=== PATIENT | male | born 1960 | race Two or more races ===

== ENCOUNTER 2024-07-29 12:44 | Inpatient (IN) | payer BC ==
[~2024-07-29] VITALS: Ht 177.8 cm; Wt 74.5 kg
--- NOTE | 2024-07-29 13:41 | DVH ---
Procedure: XY CHEST TWO VIEWS ROUTINE 07/29/2024 01:20 PM Indication: sob. Comparison: None TECHNIQUE: XY CHEST TWO VIEWS ROUTINE FINDINGS: Medical devices: None. Cardiomediastinal: The heart is normal in size. Pulmonary vasculature is within normal limits. Lungs: No focal pulmonary opacity is seen. The costophrenic angles are clear. No pneumothorax. Bones/soft tissues: Mild chronic appearing anterior compression deformity of the midthoracic vertebra l noted. Multilevel degenerative disc disease is seen. IMPRESSION: 1. No acute cardiopulmonary disease.
[2024-07-29 14:03] LABS: Basophils # (auto) 0.2 10 ^3/uL (0-0.2); Eosinophils # (auto) 0.1 10 ^3/uL (0-0.8); Eosinophils % (auto) 1.7 % (0.0-7.0); Hematocrit 42.6 % (41.0-53.0); Hemoglobin 14.4 g/dL (13.5-17.5); Lymphocytes % (auto) 23.6 % (10.0-50.0); Mean Corpuscular Hemoglobin 29.8 pg (28.0-32.0); Mean Corpuscular Hgb Conc. 33.9 g/dL (32.0-36.0); Monocytes # (auto) 0.5 10 ^3/uL (0-1.3); Monocytes % (auto) 5.6 % (0.0-12.0); Neutrophils # (auto) 5.7 10 ^3/uL (1.6-8.6); Neutrophils % (auto) 67.1 % (37.0-80.0); Platelet Count (auto) 270 10^3/uL (140-450); Red Blood Cells 4.84 10^6/uL (4.5-5.90); White Blood Cell 8.5 10^3/uL (4.4-10.8)
[2024-07-29 14:22] LABS: Chloride 107 mmol/L (98-107); Potassium 4.3 mmol/L (3.5-5.1); Sodium 140 mmol/L (136-145)
[2024-07-29 14:23] LABS: Anion Gap 4 (5-15); Carbon Dioxide 29 mmol/L (20-31)
[2024-07-29 14:24] LABS: Calcium 9.8 mg/dL (8.7-10.4)
[2024-07-29 14:29] LABS: BUN/Creatinine Ratio 16.1 (10.0-20.0); Blood Urea Nitrogen 15 mg/dL (9-23); Glucose 105 mg/dL (74-106)
--- NOTE | 2024-07-29 14:29 | ED.PDOC ---
History of Present Illness HPI Comments 63Y M presents to ED for chief complaint SOB and chest pain x3wks. Pt describes chest pain as "weight" and "sharp", radiates to throat, and is at a level of pain 4/10. Additional symptoms include fatigue and nausea. SOB gets worse with exertion. 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 Pt drinks alcohol occasionally but denies intoxication. Pt denies tobacco and illicit drug use. Pt does not have PCP. Pt's father recently earlier this year due to [place]. No known allergies. Chief Complaint: Shortness of Breath Time Seen by MD: 13:48 Reviewed Notes: Medications, Allergies Information Source: Patient Mode of Arrival: Ambulatory Severity: Moderate Timing: Weeks Duration: Intermittent Past Medical History PAST MEDICAL HISTORY: Denies Surgical History: Denies all surgeries Family History Family History: Family hx of heart chica Social History Smoker: Non-Smoker Alcohol: Occasionally Drugs: Denies Drug Use Lives In: Home Constitutional: reports: fatigue; denies: chills, diaphoresis, fever, malaise, sweats, weakness, others EENTM: denies: blurred vision, double vision, ear bleeding, ear discharge, ear drainage, ear pain, ear ringing, eye pain, eye redness, hearing loss, mouth pain, mouth swelling, nasal discharge, nose bleeding, nose congestion, nose pain, photophobia, tearing, throat pain, throat swelling, voice changes, others Respiratory: reports: SOB at rest, shortness of breath, SOB with excertion; denies: cough, hemoptysis, orthopnea, stridor, wheezing, others Cardiovascular: reports: chest pain; denies: dizzy spells, diaphoresis, Dyspnea on exertion, edema, irregular heart beat, left arm pain, lightheadedness, palpitations, PND, syncope, others Gastrointestinal: reports: nausea; denies: abdomen distended, abdominal pain, blood streaked bowels, constipated, diarrhea, dysphagia, difficulty swallowing, hematemesis, melena, poor appetite, poor fluid intake, rectal bleeding, rectal pain, vomiting, others Genitourinary: denies: burning, dysuria, flank pain, frequency, hematuria, incontinence, penile discharge, penile sore, pain, testicle pain, testicle swelling, urgency, others Neurological: denies: dizziness, fainting, headache, left sided numbness, left sided weakness, numbness, paresthesia, pre-existing deficit, right sided n umbness, right sided weakness, seizure, speech problems, tingling, tremors, weakness, others Musculoskeletal: denies: back pain, gout, joint pain, joint swelling, muscle pain, muscle stiffness, neck pain, others Integumetry: denies: bruises, change in color, change in hair/nails, dryness, laceration, lesions, lumps, rash, wounds, others Allergic/Immunocompromised: denies: Difficulty Healing, Frequent Infections, Hives, Itching, others Hematologic/Lymphatic: denies: anemia, blood clots, easy bleeding, easy bruising, swollen glands, others Endocrine: denies: excessive hunger, excessive sweating, excessive thirst, excessive urination, flushing, intolerance to cold, intolerance to heat, unexplained weight gain, unexplained weight loss, others Psychiatric: denies: anxiety, bipolar disorder, depression, hopeless, panic disorder, schizophrenia, sleepless, suicidal, others All Other Systems: Reviewed and Negative Physical Exam General Appearance: Mild Distress, Normal HEENT: Normal ENT Inspection, Pharynx Normal, TMs Normal Neck: Full Range of Motion, Non-Tender, Normal, Normal Inspection Respiratory: Chest Non-Tender, Lungs Clear, No Accessory Muscle Use, No Respiratory Distress, Normal Breath Sounds Cardiovascular: No Edema, No JVD, No Murmur, No Gallop, Normal Peripheral Pulses, Regular Rate/Rhythm Breast Exam: Deferred Gastrointestinal: No Organomegaly, Non Tender, No Pulsatile Mass, Normal Bowel Sounds, Soft Genitalia: Deferred Pelvic: Deferred Rectal: Deferred Extremities: No calf tenderness, Normal capillary refill, Normal inspection, Normal range of motion, Non-tender, No pedal edema Musculoskeletal : Apperance: Normal Neurologic: Alert, minesweeping officer II-XII nml as Tested, No Motor Deficits, Normal Affect, Normal Mood, No Sensory Deficits Cerebellar Function: Normal Reflexes: Normal Skin: Dry, Normal Color, Warm Lymphatic: No Adenopathy Was a procedure done? Was a procedure done?: No EKG EKG : Pulse Rate (adult): 81 Cardiac Rhythm: NSR Comments Normal sinus rhythm rate of 81, supraventricular bigeminy. Inverted T-waves in 3 AVF. Differential Dx Considerations may include: ACS, MS pain, gastritis X-Ray, Labs, Meds, VS Vital Signs Date Time Temp Pulse Resp B/P (MAP) Pulse Ox O2 Delivery O2 Flow Rate FiO2 07/29/24 16:48 98.0 68 18 118/64 (82) 98 98.0 07/29/24 16:48 68 18 98 Room Air 07/29/24 16:45 118/64 07/29/24 15:47 125/77 07/29/24 13:01 81 07/29/24 13:00 97.9 82 14 144/73 (96) 96 Lab Test 07/29/24 13:34 Range/Units White Blood Count 8.5 4.4-10.8 10^3/uL Red Blood Count 4.84 4.5-5.90 10^6/uL Hemoglobin 14.4 13.5-17.5 g/dL Hematocrit 42.6 41.0-53.0 % Mean Corpuscular Volume 88.0 80.0-100.0 fL Mean Corpuscular Hemoglobin 29.8 28.0-32.0 pg Mean Corpuscular Hemoglobin Concent 33.9 32.0-36.0 g/dL Red Cell Distribution Width 13.0 11.8-14.3 % Platelet Count 270 140-450 10^3/uL Mean Platelet Volume 8.7 6.9-10.8 fL Neutrophils (%) (Auto) 67.1 37.0-80.0 % Lymphocytes (%) (Auto) 23.6 10.0-50.0 % Monocytes (%) (Auto) 5.6 0.0-12.0 % Eosinophils (%) (Auto) 1.7 0.0-7.0 % Basophils (%) (Auto) 2.0 0.0-2.0 % Neutrophils # (Auto) 5.7 1.6-8.6 10 ^3/uL Lymphocytes # (Auto) 2.0 0.4-5.4 10 ^3/uL Monocytes # (Auto) 0.5 0-1.3 10 ^3/uL Eosinophils # (Auto) 0.1 0-0.8 10 ^3/uL Basophils # (Auto) 0.2 0-0.2 10 ^3/uL Nucleated Red Blood Cells 0.0 % Sodium Level 140 136-145 mmol/L Potassium Level 4.3 3.5-5.1 mmol/L Chloride Level 107 98-107 mmol/L Carbon Dioxide Level 29 20-31 mmol/L Anion Gap 4 L 5-15 Blood Urea Nitrogen 15 9-23 mg/dL Creatinine 0.93 0.700-1.30 mg/dL Glomerular Filtration Rate Calc 92 >90 mL/min BUN/Creatinine Ratio 16.1 10.0-20.0 Serum Glucose 105 74-106 mg/dL Calcium Level 9.8 8.7-10.4 mg/dL Troponin I High Sensitivity 7 </=54 ng/L B-Type Natriuretic Peptide 30.46 0-100 pg/mL Current Medications Medications (Trade) Dose Ordered Sig/Marcelino Route Start Time Stop Time Status Last Admin Nitroglycerin (Ntrostat Sublingual) 0.4 mg ONCE ONCE SL 07/29/24 14:30 07/29/24 14:31 DC 07/29/24 15:47 Aspirin 162 mg ONCE ONCE PO 07/29/24 14:30 07/29/24 14:31 DC 07/29/24 15:47 [place] [id number] Ph: [phone] DIAGNOSTIC IMAGING Diagnostic Imaging Report : [id number] Signed PATIENT: SANJUANA CASTAÑEDA ACCT: [id number] UNIT: [id number] : 1960 LOC: ER ROOM / BED: / AGE / SEX: 63 / M ADM STATUS: REG ER SERVICE [id number] ORDERING PHYSICIAN: CALEB DUNBAR MD PROCEDURE(s): CXR2 - CHEST TWO VIEWS ROUTINE REASON: sob ORDER NUMBER(s): [id number], ACCESSION NUMBER(s): [id number] Procedure: XY CHEST TWO VIEWS ROUTINE 07/29/2024 01:20 PM Indication: sob. Comparison: None TECHNIQUE: XY CHEST TWO VIEWS ROUTINE FINDINGS: Medical devices: None. Cardiomediastinal: The heart is normal in size. Pulmonary vasculature is within normal limits. Lungs: No focal pulmonary opacity is seen. The costophrenic angles are clear. No pneumothorax. Bones/soft tissues: Mild chronic appearing anterior compression deformity of the midthoracic vertebral noted. Multilevel degenerative disc disease is seen. IMPRESSION: 1. No acute cardiopulmonary disease. ATED BY: LATISHA CORCORAN MD DICTATED DATE/TIME: 07/29/241337 SIGNED BY: LATISHA CORCORAN MD SIGNED DATE/TIME: 07/29/241337 CC: 63-year-old male presents here with chest discomfort. He states the pain feels like a weight on his chest when he exerts himself and better with rest. At this time I am concerned about possible he had coronary syndrome. Chest x-ray is unremarkable. Troponin is negative. EKG with supraventricular bigeminy and inverted T-waves in 3 and AVF.. Based on his history chest pain with exertion I am concerned about acute coronary syndrome. This time I have given him nitroglycerin and aspirin in the ER. Hospitalist team has been contacted for admission. Time of 1ST Reevaluation: 14:18 Reevaluation 1ST: Unchanged Patient Education/Counseling: Diagnosis, Treatment Family Education/Counseling: No Family Present Departure 1 Departure Time of Disposition: 15:00 Impression: Primary Impression: Chest pain Qualified Codes: R07.9 - Chest pain, unspecified Disposition: ADMITTED INPATIENT Condition: Serious Critical Care Note Critical Care Time?: No Stability Stability form required: No Heart Score Heart Score: Heart Score Response (Comments) Value History Highly Suspicious 2 EKG Repolarization Disturb 1 Age 45-64 1 Risk Factors 1 or 2 risk factors 1 Troponin Normal limit 0 Total 5 I personally scribed for CALEB DUNBAR MD ([email or web address]) on 07/29/24 at 14:29. Electronically submitted by Layla Lee ([email or web address]). I personally scribed for CALEB DUNBAR MD ([email or web address]) on 07/29/24 at 14:47. Electronically submitted by Layla Lee ([email or web address]). CALEB DUNBAR MD Jul 29, 2024 14:29
[2024-07-29] MEDS: NITROGLYCERIN 0.4 MG SL TAB SL ONE (15:47)
[2024-07-29] MEDS: ASPirin 81 mg TAB PO ONE (15:47)
[2024-07-29 16:50] VITALS: O2SAT 96
--- NOTE | 2024-07-29 16:58 | ECG ---
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
[2024-07-29] MEDS ORDERED: MORPHINE SULFATE INJ 2 MG/ml SYRG IV PRN (18:45)
[2024-07-29] MEDS ORDERED: MORPHINE SULFATE 4 MG/ML SYR/VIAL IV PRN (18:45)
[2024-07-29] MEDS ORDERED: ACETAMINOPHEN 325 MG TAB PO PRN (18:45)
[2024-07-29] MEDS ORDERED: ONDANSETRON HCL 4 MG/2 ML VIAL IV PRN (18:45)
[2024-07-29] MEDS ORDERED: NITROGLYCERIN 0.4 MG SL TAB SL PRN ×2 (18:45)
--- NOTE | 2024-07-29 19:02 | DVHHP2 ---
History of Present Illness Reason for Visit: shortness of breath and chest pain History of Present Illness 63 yo male with stated no past medial history and patient states that he has had chest pain and intermittent palpations and shortness of breath that occurred at various times patient came to the ed with severe chest pain Cardiovascular: AFIB Review of Systems Constitutional: No: Fever, Chills, Sweats, Weakness, Malaise, Other Eyes: No: Pain, Vision change, Conjunctivae inflammation, Eyelid inflammation, Other, Redness ENT: No: Ear pain, Ear discharge, Nose pain, Nose discharge, Nose congestion, Mouth pain, Mouth swelling, Throat pain, Throat swelling, Other Respiratory: Shortness of breath, SOB with excertion; No: Cough, Dry, Wheezing, Hemoptysis, Pleuritic Pain, Sputum, Wheezing, Other Cardiovascular: Chest Pain, Palpitations; No: Orthopnea, Paroxysmal Noc. Dyspnea, Edema, Lt Headedness, Other Gastrointestinal: No: Nausea, Vomiting, Abdominal Pain, Diarrhea, Constipation, Melena, Hematochezia, Other Genitourinary: No Dysuria, No Frequency, No Incontinence, No Hematuria, No Retention, No Other Musculoskeletal: No: other, neck pain, shoulder pain, arm pain, back pain, hand pain, leg pain, foot pain Skin: No: Rash, Lesions, Jaundice, Bruising, Other Neurological: No: Weakness, Numbness, Incoordination, Change in speech, Confusion, Seizures, Other Medications Current Medications Medications Dose Ordered Sig/Marcelino Route Start Time Stop Time Status Last Admin Dose Admin Aspirin 81 mg DAILY PO 07/30/24 10:00 UNV Clopidogrel Bisulfate 75 mg DAILY PO 07/30/24 10:00 UNV Atorvastatin Calcium 40 mg HS PO 07/29/24 22:00 UNV Metoprolol Tartrate 12.5 mg Q12HR PO 07/29/24 22:00 UNV Lisinopril 5 mg DAILY PO 07/30/24 10:00 UNV Morphine Sulfate 2 mg Q30MP PRN IV 07/29/24 18:45 UNV Acetaminophen 650 mg Q6HP PRN PO 07/29/24 18:45 UNV Docusate Sodium 100 mg DAILY PO 07/30/24 10:00 UNV Nitroglycerin 0.4 mg Q5MINP PRN SL 07/29/24 18:45 UNV Ondansetron HCl 4 mg Q4HP PRN IV 07/29/24 18:45 UNV Nitroglycerin 0.4 mg Q5MINP PRN SL 07/29/24 18:45 UNV Morphine Sulfate 2 mg Q30M PRN IV 07/29/24 18:45 UNV Exam Vital Signs Vital Signs Date Time Temp Pulse Resp B/P (MAP) Pulse Ox O2 Delivery O2 Flow Rate FiO2 07/29/24 17:03 81 07/29/24 16:50 96 Room Air* 0 21 07/29/24 16:48 98.0 18 118/64 (82) 98.0 General Appearance: Alert, Oriented X3 HEENT: Atraumatic, PERRLA Respiratory: Clear to auscultation, Normal air movement Cardiovascular: Regular rate Abdominal: Normal bowel sounds, Soft Extremities: No clubbing, No cyanosis Skin: No rashes, No breakdown Neuro: Normal gait, Normal speech Psych/Mental Status: Mood NL Labs/Xrays Labs Test 07/29/24 13:34 Range/Units White Blood Count 8.5 4.4-10.8 10^3/uL Red Blood Count 4.84 4.5-5.90 10^6/uL Hemoglobin 14.4 13.5-17.5 g/dL Hematocrit 42.6 41.0-53.0 % Mean Corpuscular Volume 88.0 80.0-100.0 fL Mean Corpuscular Hemoglobin 29.8 28.0-32.0 pg Mean Corpuscular Hemoglobin Concent 33.9 32.0-36.0 g/dL Red Cell Distribution Width 13.0 11.8-14.3 % Platelet Count 270 140-450 10^3/uL Mean Platelet Volume 8.7 6.9-10.8 fL Neutrophils (%) (Auto) 67.1 37.0-80.0 % Lymphocytes (%) (Auto) 23.6 10.0-50.0 % Monocytes (%) (Auto) 5.6 0.0-12.0 % Eosinophils (%) (Auto) 1.7 0.0-7.0 % Basophils (%) (Auto) 2.0 0.0-2.0 % Neutrophils # (Auto) 5.7 1.6-8.6 10 ^3/uL Lymphocytes # (Auto) 2.0 0.4-5.4 10 ^3/uL Monocytes # (Auto) 0.5 0-1.3 10 ^3/uL Eosinophils # (Auto) 0.1 0-0.8 10 ^3/uL Basophils # (Auto) 0.2 0-0.2 10 ^3/uL Nucleated Red Blood Cells 0.0 % Sodium Level 140 136-145 mmol/L Potassium Level 4.3 3.5-5.1 mmol/L Chloride Level 107 98-107 mmol/L Carbon Dioxide Level 29 20-31 mmol/L Anion Gap 4 L 5-15 Blood Urea Nitrogen 15 9-23 mg/dL Creatinine 0.93 0.700-1.30 mg/dL Glomerular Filtration Rate Calc 92 >90 mL/min BUN/Creatinine Ratio 16.1 10.0-20.0 Serum Glucose 105 74-106 mg/dL Calcium Level 9.8 8.7-10.4 mg/dL Troponin I High Sensitivity 7 </=54 ng/L B-Type Natriuretic Peptide 30.46 0-100 pg/mL Assessment/Plan Assessment/Plan Admit to Tele Chest Pain Palpations shortness of breath with no stated cardiac history currently no acute distress trops x 3 protocol for chest pain management possible cardiac evaluation Plan discussed with: Patient My Orders Orders - PROSPER HANEY MD Procedure Category Date Status Time Admit ADMIT 07/29/24 Transmitted 18:34 Code Status CODE 07/29/24 Transmitted 18:34 Vital Signs [facility] 07/29/24 In Process 18:34 Revenue Audit Clerk CELE 07/29/24 In Process 18:34 Cardiac DIET 07/30/24 Transmitted Diet-2gna,Lofat,Lochol Breakfast Aspirin Tablet PHA 07/30/24 Logged 10:00 Clopidogrel Bisulfate PHA 07/30/24 Logged (Plavix) 10:00 Atorvastatin (Lipitor) PHA 07/29/24 Logged 22:00 Metoprolol Tartrate PHA 07/29/24 Logged Tablet (Lopressor Ta 22:00 Lisinopril Tablet PHA 07/30/24 Logged (Zestril Tablet) 10:00 Morphine Sulfate PHA 07/29/24 Logged Injection 18:45 Acetaminophen Tablet PHA 07/29/24 Logged (Tylenol Tablet) 18:45 Docusate Sodium PHA 07/30/24 Logged Capsule (Colace 10:00 Complete Blood Count LAB 07/30/24 Verified 04:00 Basic Metabolic Panel LAB 07/30/24 Verified 04:00 Nitroglycerin PHA 07/29/24 Logged Sublingual (Ntrostat 18:45 Ondansetron Hcl PHA 07/29/24 Logged (Zofran) 18:45 Electrocardigram EKG 07/29/24 Logged 18:34 Troponin-I Hs LAB 07/29/24 Logged 18:34 Comprehensive LAB 07/31/24 Verified Metabolic Panel 04:00 Nitroglycerin PHA 07/29/24 Logged Sublingual (Ntrostat 18:45 Morphine Sulfate PHA 07/29/24 Logged Injection 18:45 Stat Ekg For Chest [facility] 07/29/24 In Process Pain 18:34 Notify Md Of Changes [facility] 07/29/24 In Process From Base 18:34 Ward Service Supervisor For [facility] 07/29/24 In Process 24 Hours 18:34 Emergency Dysrhythmia [facility] 07/29/24 In Process Protocol 18:34 Rhythm Strips Once [facility] 07/29/24 In Process Every Shift 18:34 Oxygen By Nasal RT 07/29/24 Transmitted Cannula 18:34 Date of Service: Jul 29, 2024 Billing Provider: PROSPER HANEY MD Common Visit Codes: [id number] INP/OBS CARE (MOD) PROSPER HANEY MD Jul 29, 2024 19:02
[2024-07-29 22:35] VITALS: BP 132/77; PULSE 94; RESP 18; TEMP 97.6; O2SAT 98
[2024-07-29 23:46] VITALS: BP 132/77; PULSE 94; RESP 18; TEMP 97.6; O2SAT 98
[2024-07-29] MEDS: ATORVASTATIN 20 MG TAB PO SCH (23:57)
[2024-07-30] VITALS (8 sets, daily range): BP systolic 104–143; BP diastolic 53–76; PULSE 52–65; RESP 14–20; TEMP 97.5–97.7; O2SAT 94–98
[2024-07-30] MEDS: METOPROLOL TARTRATE 25 MG TAB PO SCH (00:04)
[2024-07-30 06:05] LABS: Basophils # (auto) 0 10 ^3/uL (0-0.2); Basophils % (auto) 0.8 % (0.0-2.0); Eosinophils # (auto) 0.1 10 ^3/uL (0-0.8); Eosinophils % (auto) 2.5 % (0.0-7.0); Hematocrit 41.8 % (41.0-53.0); Hemoglobin 13.7 g/dL (13.5-17.5); Lymphocytes # (auto) 1.9 10 ^3/uL (0.4-5.4); Lymphocytes % (auto) 32.2 % (10.0-50.0); Mean Corpuscular Hgb Conc. 32.9 g/dL (32.0-36.0); Mean Corpuscular Volume 88.1 fL (80.0-100.0); Monocytes # (auto) 0.5 10 ^3/uL (0-1.3); Monocytes % (auto) 8.5 % (0.0-12.0); Neutrophils # (auto) 3.3 10 ^3/uL (1.6-8.6); Nucleated Red Blood Cells % 0.1 %; Platelet Count (auto) 245 10^3/uL (140-450); Red Blood Cells 4.74 10^6/uL (4.5-5.90); White Blood Cell 5.8 10^3/uL (4.4-10.8)
[2024-07-30 06:23] LABS: Anion Gap 4 (5-15); Carbon Dioxide 28 mmol/L (20-31); Chloride 109 mmol/L (98-107); Potassium 4.2 mmol/L (3.5-5.1); Sodium 141 mmol/L (136-145)
[2024-07-30 06:24] LABS: Calcium 9.4 mg/dL (8.7-10.4)
[2024-07-30 06:29] LABS: BUN/Creatinine Ratio 14.3 (10.0-20.0); Blood Urea Nitrogen 11 mg/dL (9-23); Glucose 106 mg/dL (74-106)
[2024-07-30] MEDS: ASPirin 81 mg TAB PO SCH (10:05)
[2024-07-30] MEDS: CLOPIDOGREL BISULFATE 75 MG TAB PO SCH (10:05)
[2024-07-30] MEDS: DOCUSATE SOD 100 MG CAP PO SCH (10:05)
[2024-07-30] MEDS: LISINOPRIL 5 MG TAB PO SCH (10:07)
--- NOTE | 2024-07-30 13:20 | DVHPN2 ---
Reviewed: Care Plan, H&P, Labs, Medications, Previous Orders, Radiology Changes from previous H/P or p: No Changes Eyes: No Pain, No Vision change, No Conjunctivae inflammation, No Eyelid inflammation, No Other, No Redness ENT: No Ear pain, No Ear discharge, No Nose pain, No Nose discharge, No Nose congestion, No Mouth pain, No Mouth swelling, No Throat pain, No Throat swelling, No Other Cardiovascular: Chest Pain, Palpitations; No Orthopnea, No Paroxysmal Noc. Dyspnea, No Edema, No Lt Headedness, No Other Respiratory: No Cough, No Dry; Shortness of breath, SOB with excertion; No Wheezing, No Hemoptysis, No Pleuritic Pain, No Sputum, No Other Gastrointestinal: No Nausea, No Vomiting, No Abdominal Pain, No Diarrhea, No Constipation, No Melena, No Hematochezia, No Other Genitourinary: No Dysuria, No Frequency, No Incontinence, No Hematuria, No Retention, No Other Musculoskeletal: No other, No neck pain, No shoulder pain, No arm pain, No back pain, No hand pain, No leg pain, No foot pain Skin: No Rash, No Lesions, No Jaundice, No Bruising, No Other Objective Vitals Vital Signs Date Time Temp Pulse Resp B/P (MAP) Pulse Ox O2 Delivery O2 Flow Rate FiO2 07/30/24 12:59 97.5 55 14 126/63 (84) 96 97.5 07/30/24 08:15 Room Air* 0 21 Intake/Output Intake and Output 07/30/24 07:00 Intake Total 800 ml Balance 800 ml Intake Oral 800 ml # Voids 2 Medications Current Medications Medications Dose Ordered Sig/Marcelino Route Start Time Stop Time Status Last Admin Dose Admin Aspirin 81 mg DAILY PO 07/30/24 10:00 07/30/24 10:05 81 MG Clopidogrel Bisulfate 75 mg DAILY PO 07/30/24 10:00 07/30/24 10:05 75 MG Atorvastatin Calcium 40 mg HS PO 07/29/24 23:30 07/29/24 23:57 40 MG Metoprolol Tartrate 12.5 mg Q12HR PO 07/29/24 23:30 07/30/24 00:04 12.5 MG Lisinopril 5 mg DAILY PO 07/30/24 10:00 07/30/24 10:07 5 MG Morphine Sulfate 2 mg Q30MP PRN IV 07/29/24 18:45 Acetaminophen 650 mg Q6HP PRN PO 07/29/24 18:45 Docusate Sodium 100 mg DAILY PO 07/30/24 10:00 07/30/24 10:05 100 MG Nitroglycerin 0.4 mg Q5MINP PRN SL 07/29/24 18:45 Ondansetron HCl 4 mg Q4HP PRN IV 07/29/24 18:45 Nitroglycerin 0.4 mg Q5MINP PRN SL 07/29/24 18:45 Morphine Sulfate 2 mg Q30M PRN IV 07/29/24 18:45 Laboratory Results Laboratory Tests 07/30/24 05:36 Chemistry Test 07/29/24 13:34 07/30/24 05:36 Calcium Level 9.8 mg/dL (8.7-10.4) 9.4 mg/dL (8.7-10.4) Cardiac Markers Test 07/29/24 13:34 B-Type Natriuretic Peptide 30.46 pg/mL (0-100) Labs and/or images reviewed: Labs reviewed by me, Image(s) reviewed by me Assessment/Plan Assessment/Plan Chest Pain and shortness of breaths and palpitations x3 weeks, troponin negative x3 , aspirin Plavix Lipitor lisinopril metoprolol, cardiology consult Will check D-dimer flu test Danay test TSH lipid panel urine drug screen Echocardiogram CT chest without contrast ordered Chronic Current alcohol abuse counseled Denies Smoking or illicit drug use Plan discussed with: Patient My Orders Orders - BERT ALAN MD Procedure Category Date Status Time D-Dimer LAB 07/30/24 Logged 13:11 Covid19 Antigen Cheli LAB 07/30/24 Logged Rapid Influenza A&B LAB 07/30/24 Logged 13:11 Thyroid Stimulating LAB 07/30/24 Verified Hormone 13:13 Lipid Panel LAB 07/30/24 Verified 13:[address] 07/30/24 Verified 13:13 Drug Screen LAB 07/30/24 Verified 13:13 Date of Service: Jul 30, 2024 Billing Provider: BERT ALAN MD Common Visit Codes: [id number] INP/OBS CARE(HIGH) BERT ALAN MD Jul 30, 2024 13:20
[2024-07-30 15:33] LABS: LDL Cholesterol 158 mg/dL (< 100); Triglycerides 227 mg/dL (< 150)
[2024-07-30 15:35] LABS: Cholesterol 228 mg/dL (< 200); HDL Cholesterol 50 mg/dL (40-59)
--- NOTE | 2024-07-30 15:41 | DVH ---
EXAM: CT CHEST WITHOUT CONTRAST HISTORY: chest pain COMPARISON: None TECHNIQUE: Axial images were obtained and reformatted in coronal and sagittal planes. All CT scans at this medical facility are performed using dose modulation techniques as appropriate to a performed exam including the following: Automated exposure control was utilized; adjustment of the MA and/or K V according to patient size; and use of iterative reconstruction technique. CT Dose: CTDI volume is 8.47 mGy. Dose-length product is 288.42 mGy*cm FINDINGS: Lower neck: Unremarkable. Cardiomediastinal: The heart is normal in size. Coronary artery calcification noted. Lungs: Unremarkable. Bones and Soft Tissues: No acute abnormality. Multilevel degenerative changes of the thoracic spine are noted. Upper Abdomen: No acute abnormality. Hepatic steatosis noted. Other: None. IMPRESSION: 1. No acute abnormality is identified. Coronary artery calcification.
[2024-07-30] MEDS ORDERED: hydrALAZINE HCL 20 MG/ML VL IV PRN (15:45)
[2024-07-30 15:49] LABS: COVID19 ANTIGEN SOFIA FIA NEGATIVE (NEGATIVE); Rapid Influenza A Negative (Negative); Rapid Influenza B Negative (Negative)
--- NOTE | 2024-07-30 16:07 | DVHINCON2 ---
Date Seen: Jul 30, 2024 Referring Physician MD Ru Reason for Consultation Chest pain History of Present Illness This is a pleasant 63-year-old man who presented to the emergency room with a chief complaint of chest pain for two weeks. Describes his chest pain as progressive, substernal, radiating to his anterior neck area, pressure-like, exacerbated by activity, and associated with dyspnea on exertion. 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 He underwent a 12 lead electrocardiogram revealing a sinus rhythm ST segment depression to inferior leads and multiple premature atrial contractions. Serial troponin levels are negative. Family history includes father from a massive myocardial infarction in his 80s y.o. Only reports a medical history of dyslipidemia and occasional alcohol use. Of note, the patient has not seen a PCP with in the past in years. Past Medical History Past medical history reviewed. No other significant than mentioned above. Past Surgical History Past surgical history reviewed. No other significant than mentioned above. Family History: Alcoholism Cardiovascular disease G8 MOTHER Diabetes mellitus G8 BROTHER FH: liver cancer G8 FATHER Family History Family history reviewed. Social History Denies the use of illicit drugs or tobacco use. Admits to occasional alcohol use. Allergies: Coded Allergies: NO KNOWN ALLERGIES (Unverified , 07/29/24) Home Meds Denies any home medications. Current Medications Current Medications Medications (Trade) Dose Ordered Sig/Marcelino Route PRN Reason Start Time Stop Time Status Last Admin Aspirin 81 mg DAILY PO 07/30/24 10:00 07/30/24 10:05 Clopidogrel Bisulfate (Plavix) 75 mg DAILY PO 07/30/24 10:00 07/30/24 10:05 Atorvastatin Calcium (Lipitor) 40 mg HS PO 07/29/24 23:30 07/29/24 23:57 Metoprolol Tartrate (Lopressor Tablet) 12.5 mg Q12HR PO 07/29/24 23:30 07/30/24 00:04 Lisinopril (Zestril Tablet) 5 mg DAILY PO 07/30/24 10:00 07/30/24 10:07 Morphine Sulfate 2 mg Q30MP PRN IV FOR CHEST PAIN 07/29/24 18:45 Acetaminophen (Tylenol Tablet) 650 mg Q6HP PRN PO MILD PAIN (1-3 PAIN SCALE) 07/29/24 18:45 Docusate Sodium (Colace Capsule) 100 mg DAILY PO 07/30/24 10:00 07/30/24 10:05 Nitroglycerin (Ntrostat Sublingual) 0.4 mg Q5MINP PRN SL FOR CHEST PAIN 07/29/24 18:45 Ondansetron HCl (Zofran) 4 mg Q4HP PRN IV NAUSEA / VOMITING 07/29/24 18:45 Nitroglycerin (Ntrostat Sublingual) 0.4 mg Q5MINP PRN SL FOR CHEST PAIN 07/29/24 18:45 Morphine Sulfate 2 mg Q30M PRN IV FOR CHEST PAIN 07/29/24 18:45 Review of Systems Constitutional: No symptom reported Ears, Nose, & Throat: No symptom reported Eyes: No symptom reported Neurological: No symptoms reported Pulmonary/Respiratory: SOB Cardiovascular: Chest pain Gastrointestinal: No symptom reported Genitourinary: No symptom reported Musculoskeletal: No symptom reported Skin: No symptom reported Psychiatric: No symptom reported Endocrine: No symptom reported Hemotologic/Lymphatic: No symptom reported Vital Signs Vital Signs Date Time Temp Pulse Resp B/P (MAP) Pulse Ox O2 Delivery O2 Flow Rate FiO2 07/30/24 12:59 97.5 55 14 126/63 (84) 96 97.5 07/30/24 08:15 Room Air* 0 21 Physical Exam General Appearance: Cooperative. Well developed. Well nourished. In no acute distress Head Exam: Normal inspection Neck Exam: Normal inspection. Non-tender. Normal alignment Pulmonary/Respiratory: Chest non-tender. Clear bilateral breath sounds Cardiovascular/Chest: Regular rate and rhythm. S1, S2. Sinus rhythm with inferior ST segment depression and frequent PACs. No murmurs. No JVD. Peripheral Pulses: 2+ Radial (R). 2+ Radial (L). 2+ Pedal (R). 2+ Pedal (L) Abdominal Exam: Normal bowel sounds. Soft. Nontender. No hepatospenomegaly. No masses Ankle Exam: Negative ankle edema Lower extremities: Negative lower extremity edema Neuro/Mental Status: A&O x4. Coherent Thoughts/Psych: Normal thought pattern. Appropriate mood and affect. Good judgement and insight Appearance: In no acute distress Skin Exam: Normal inspection. Normal color. Warm. Dry Labs/Diagnostic Data Labs Test 07/30/24 15:09 07/30/24 14:38 07/30/24 05:36 07/29/24 19:20 Range/Units D-Dimer, Quantitative 0.22 0.0-0.49 mg/L FEU White Blood Count 5.8 # 4.4-10.8 10^3/uL Red Blood Count 4.74 4.5-5.90 10^6/uL Hemoglobin 13.7 13.5-17.5 g/dL Hematocrit 41.8 41.0-53.0 % Mean Corpuscular Volume 88.1 80.0-100.0 fL Mean Corpuscular Hemoglobin 29.0 28.0-32.0 pg Mean Corpuscular Hemoglobin Concent 32.9 32.0-36.0 g/dL Red Cell Distribution Width 13.0 11.8-14.3 % Platelet Count 245 140-450 10^3/uL Mean Platelet Volume 8.6 6.9-10.8 fL Neutrophils (%) (Auto) 56.0 37.0-80.0 % Lymphocytes (%) (Auto) 32.2 10.0-50.0 % Monocytes (%) (Auto) 8.5 0.0-12.0 % Eosinophils (%) (Auto) 2.5 0.0-7.0 % Basophils (%) (Auto) 0.8 0.0-2.0 % Neutrophils # (Auto) 3.3 1.6-8.6 10 ^3/uL Lymphocytes # (Auto) 1.9 0.4-5.4 10 ^3/uL Monocytes # (Auto) 0.5 0-1.3 10 ^3/uL Eosinophils # (Auto) 0.1 0-0.8 10 ^3/uL Basophils # (Auto) 0 0-0.2 10 ^3/uL Nucleated Red Blood Cells 0.1 % Sodium Level 141 136-145 mmol/L Potassium Level 4.2 3.5-5.1 mmol/L Chloride Level 109 H 98-107 mmol/L Carbon Dioxide Level 28 20-31 mmol/L Anion Gap 4 L 5-15 Blood Urea Nitrogen 11 9-23 mg/dL Creatinine 0.77 0.700-1.30 mg/dL Glomerular Filtration Rate Calc 101 >90 mL/min BUN/Creatinine Ratio 14.3 10.0-20.0 Serum Glucose 106 74-106 mg/dL Calcium Level 9.4 8.7-10.4 mg/dL Troponin I High Sensitivity 8 </=54 ng/L Test 07/29/24 13:34 Range/Units B-Type Natriuretic Peptide 30.46 0-100 pg/mL Assessment Stable angina rule out coronary artery disease Rule out structural heart disease Dyslipidemia Plan/Recommendation (Dr. Negrete) The patient presents with stable angina, EKG changes including inferior ST changes, family history for cardiovascular disease, and risk factors for which he will be scheduled for a cardiac catheterization and coronary angiogram on 07/31/2024. All risks and benefits of the procedure were discussed with the patient who agrees to proceed with intervention. All questions answered. The patient is also scheduled for a transthoracic echocardiogram to assess cardiac function. Continue single-antiplatelet therapy, lipid lowering agent, and beta- yared given frequent PACs which is the culprit of bradycardia. HgbA1c, TSH, Mg, and blood alcohol levels pending at this time. Monitor ECG changes and n otify. Continue chest pain protocol. Thank you for allowing us to participate in this patient's care. Please call if you have any questions or concerns. This medical document was created using an electronic medical record system with voice recognition software and computerized dictation system. Although this document has been carefully reviewed, there might still be some phonetic and typographical errors. Occasional wrong-word or ``sound-alike substitutions may have occurred due to the inherent limitations of voice recognition software. These areas are purely typographical due to imperfections of the software pr ograms and do not reflect any compromise in the patient's medical care. Please read the chart carefully and recognize, using context, where these substitutions have occurred. Plan discussed with: Patient, Other Date of Service: Jul 30, 2024 Billing Provider: KAVITA NEGRETE MD Cardiology Common Codes: [id number] INP/OBS CARE (High) [facility] Jul 30, 2024 16:07
[2024-07-31] VITALS (12 sets, daily range): BP systolic 97–126; BP diastolic 60–73; PULSE 53–70; RESP 14–19; TEMP 97.6–98.3; O2SAT 94–100
[2024-07-31 04:31] LABS: Urine Bacteria None Seen /hpf (None Seen)
[2024-07-31 04:46] LABS: Urine Blood Negative /uL (Negative); Urine Clarity Clear (Clear); Urine Color Light-Yellow (Yellow); Urine Protein, UAD Negative (Negative); Urine Specific Gravity 1.018 (1.001-1.035); Urine Urobilinogen Normal (Negative); Urine WBC <1 /hpf (0 - 3); Urine pH 5.5 (5.0-9.0)
[2024-07-31 04:57] LABS: Amphetamine Screen, Urine Neg (NEGATIVE); Barbiturate Scree,Urine Neg (NEGATIVE); Benzodiazephine Screen, Urine Neg (NEGATIVE); Cocaine Screen, Urine Neg (NEGATIVE); Opiate Scree,Urine Neg (NEGATIVE); Phencyclidine Screen, Urine Neg (NEGATIVE)
[2024-07-31 04:58] LABS: Cannabinoid Screen, Urine Neg (NEGATIVE)
[2024-07-31 05:43] LABS: Basophils # (auto) 0.1 10 ^3/uL (0-0.2); Basophils % (auto) 0.8 % (0.0-2.0); Eosinophils # (auto) 0.1 10 ^3/uL (0-0.8); Eosinophils % (auto) 1.7 % (0.0-7.0); Hematocrit 42.6 % (41.0-53.0); Hemoglobin 14.2 g/dL (13.5-17.5); Lymphocytes # (auto) 2.2 10 ^3/uL (0.4-5.4); Lymphocytes % (auto) 32.4 % (10.0-50.0); Mean Corpuscular Hemoglobin 29.6 pg (28.0-32.0); Mean Corpuscular Hgb Conc. 33.4 g/dL (32.0-36.0); Mean Corpuscular Volume 88.7 fL (80.0-100.0); Monocytes # (auto) 0.6 10 ^3/uL (0-1.3); Monocytes % (auto) 8.6 % (0.0-12.0); Neutrophils # (auto) 3.7 10 ^3/uL (1.6-8.6); Neutrophils % (auto) 56.5 % (37.0-80.0); Platelet Count (auto) 257 10^3/uL (140-450); Red Cell Distribution Width 12.7 % (11.8-14.3); White Blood Cell 6.6 10^3/uL (4.4-10.8)
[2024-07-31 06:02] LABS: INR 1.06 (0.9-1.15); Partial Thromboplastin Time 26.8 SEC (24.5-34.5); Prothrombin Time 11.2 sec (9.3-11.8)
[2024-07-31 06:11] LABS: Alanine Aminotransferase 26 U/L (7-40); Albumin 4.2 g/dL (3.2-4.8); Alkaline Phosphatase 60 U/L (46-116); Anion Gap 6 (5-15); Aspartate Aminotransferase 15 U/L (13-40); BUN/Creatinine Ratio 14.9 (10.0-20.0); Bilirubin, Total 1.3 mg/dL (0.2-1.0); Blood Urea Nitrogen 14 mg/dL (9-23); Calcium 9.9 mg/dL (8.7-10.4); Carbon Dioxide 27 mmol/L (20-31); Chloride 106 mmol/L (98-107); Glucose 103 mg/dL (74-106); Potassium 4.2 mmol/L (3.5-5.1); Sodium 139 mmol/L (136-145); Total Protein 7.1 g/dL (5.7-8.2)
--- NOTE | 2024-07-31 09:56 | DVHSR ---
APPROVED REPORT EXAM: Two-dimensional and M-mode echocardiogram with Doppler and color Doppler. Blood Pressure: 126/63 mmHg INDICATION Chest Pain RISK FACTORS Height: 5'10", Weight: 170 DIMENSIONS LVDd5.3 (3.8-5.7cm)LA (2D) (1.9-4.0cm)Aortic Root3.4 (2.0-3.7cm) LVDs3.9 (2.5-4.0cm)LA (MM) (1.9-4.0cm)Aortic Cusp Exc1.5 (1.5-2.0cm) EF (%) 50.0 (55-70%)Rt. Atrium (1.9-4.0cm)Asc. Aorta cm IVSd0.8 (0.7-1.1cm)RV (D) (1.8-2.4cm) PWd1.1 (0.7-1.1cm) Mitral Valve MitralMitral Stenosis E wave0.62m/sMV Mean GR.mmHg A wave0.64m/sMV Peak GR.mmHg E/A ratio1.02D MVAcm2 DECEL [id number] 1/2 Timems Aortic Valve Aortic ValveAortic Stenosis V11.12m/Gabriela Mean GR.4mmHg V21.42m/Gabriela Peak GR.8mmHg LVOT Diameter1.9 (1.8-2.4cm)Doppler AVA2.24cm2 Pulmonic Valve V21.38m/s Other Information Quality : LimitedRhythm : Technically limited study due to body habitus. Conclusion Normal left ventricular size and dimension. Normal left ventricular systolic function estimated ejec tion fraction of 55%. There is a grade 1 diastolic dysfunction. Normal right ventricular size and dimension. Normal right ventricular systolic function. Normal biatrial size and dimension. Normal aortic valve structure and function. Normal mitral valve structure and function. Normal tricuspid valve structure and function. The pulmonary valve is grossly normal. No pericardial effusion.
--- NOTE | 2024-07-31 11:33 | DVHPN2 ---
Reviewed: Care Plan, H&P, Labs, Medications, Previous Orders, Radiology Changes from previous H/P or p: No Changes Eyes: No Pain, No Vision change, No Conjunctivae inflammation, No Eyelid inflammation, No Other, No Redness ENT: No Ear pain, No Ear discharge, No Nose pain, No Nose discharge, No Nose congestion, No Mouth pain, No Mouth swelling, No Throat pain, No Throat swelling, No Other Cardiovascular: Chest Pain, Palpitations; No Orthopnea, No Paroxysmal Noc. Dyspnea, No Edema, No Lt Headedness, No Other Respiratory: No Cough, No Dry; Shortness of breath, SOB with excertion; No Wheezing, No Hemoptysis, No Pleuritic Pain, No Sputum, No Other Gastrointestinal: No Nausea, No Vomiting, No Abdominal Pain, No Diarrhea, No Constipation, No Melena, No Hematochezia, No Other Genitourinary: No Dysuria, No Frequency, No Incontinence, No Hematuria, No Retention, No Other Musculoskeletal: No other, No neck pain, No shoulder pain, No arm pain, No back pain, No hand pain, No leg pain, No foot pain Skin: No Rash, No Lesions, No Jaundice, No Bruising, No Other Objective Vitals Vital Signs Date Time Temp Pulse Resp B/P (MAP) Pulse Ox O2 Delivery O2 Flow Rate FiO2 07/31/24 10:58 73 115/77 07/31/24 09:44 98.3 17 97 98.3 07/30/24 20:00 Room Air* 0 21 Intake/Output Intake and Output 07/31/24 07:00 Intake Total 2930 ml Balance 2930 ml Intake Oral 2930 ml # Voids 7 Medications Current Medications Medications Dose Ordered Sig/Marcelino Route Start Time Stop Time Status Last Admin Dose Admin Aspirin 81 mg DAILY PO 07/30/24 10:00 07/31/24 10:57 81 MG Clopidogrel Bisulfate 75 mg DAILY PO 07/30/24 10:00 07/31/24 10:56 75 MG Atorvastatin Calcium 40 mg HS PO 07/29/24 23:30 07/30/24 21:06 40 MG Metoprolol Tartrate 12.5 mg Q12HR PO 07/29/24 23:30 07/31/24 10:58 12.5 MG Lisinopril 5 mg DAILY PO 07/30/24 10:00 07/31/24 10:57 5 MG Morphine Sulfate 2 mg Q30MP PRN IV 07/29/24 18:45 Acetaminophen 650 mg Q6HP PRN PO 07/29/24 18:45 Docusate Sodium 100 mg DAILY PO 07/30/24 10:00 07/31/24 10:56 100 MG Nitroglycerin 0.4 mg Q5MINP PRN SL 07/29/24 18:45 Ondansetron HCl 4 mg Q4HP PRN IV 07/29/24 18:45 Nitroglycerin 0.4 mg Q5MINP PRN SL 07/29/24 18:45 Morphine Sulfate 2 mg Q30M PRN IV 07/29/24 18:45 Hydralazine HCl 10 mg Q6HP PRN IV 07/30/24 15:45 Laboratory Results Laboratory Tests 07/31/24 04:50 Chemistry Test 07/31/24 04:50 Albumin 4.2 g/dL (3.2-4.8) Calcium Level 9.9 mg/dL (8.7-10.4) Total Protein 7.1 g/dL (5.7-8.2) Coagulation Test 07/30/24 14:38 07/31/24 04:50 D-Dimer, Quantitative 0.22 mg/L FEU (0.0-0.49) Prothrombin Time 11.2 sec (9.3-11.8) Prothrombin Time INR 1.06 (0.9-1.15) Activated Partial Thromboplast Time 26.8 SEC (24.5-34.5) LFT Test 07/31/24 04:50 Alanine Aminotransferase (ALT) 26 U/L (7-40) Alkaline Phosphatase 60 U/L (46-116) Aspartate Amino Transferase (AST) 15 U/L (13-40) Total Bilirubin 1.3 mg/dL (0.2-1.0) H Urinalysis Test 07/31/24 04:30 Urine Color Light-yellow (Yellow) Urine Clarity Clear (Clear) Urine pH 5.5 (5.0-9.0) Urine Specific [place] 1.018 (1.001-1.035) Urine Protein Negative (Negative) Urine Ketones Negative (Negative) Urine Blood Negative /uL (Negative) Urine Nitrite Negative (Negative) Urine Bilirubin Negative (Negative) Urine Urobilinogen Normal mg/dL (Negative) Urine Leukocyte Esterase Negative /uL (Negative) Urine RBC <1 /hpf (0 - 3) Urine WBC <1 /hpf (0 - 3) Urine Squamous Epithelial Cells None seen /hpf (<5) Urine Bacteria None seen /hpf (None Seen) Urine Glucose Normal mg/dL (Normal) Labs and/or images reviewed: Labs reviewed by me, Image(s) reviewed by me Assessment/Plan Assessment/Plan Chest Pain and shortness of breaths and palpitations x3 weeks, troponin negative x3 , aspirin Plavix Lipitor lisinopril metoprolol, cardiology consult Echo 55 % ejection fraction Flu test negative COVID test negative D-dimer negative Urine drug screen negative Hypercholesterolemia with cholesterol of 228: Lipitor 40 mg p.o. daily Echocardiogram CT chest without contrast ordered Chronic Current alcohol abuse counseled Denies Smoking or illicit drug use Patient getting left heart catheterization today Emma at bedside Plan discussed with: Patient My Orders Orders - BERT ALAN MD Procedure Category Date Status Time Chest Without Contrast CT 07/30/24 Resulted 13:13 Echo 2d Mode Cardiac US 07/30/24 Resulted DOP 13:20 * Cardiology Consult CONS 07/30/24 Transmitted 13:20 Date of Service: Jul 31, 2024 Billing Provider: BERT ALAN MD Common Visit Codes: [id number] INP/OBS CARE(HIGH) BERT ALAN MD Jul 31, 2024 11:33
[2024-07-31] MEDS: IODIXANOL 320MG/ML 100ML BTL IV ONE (12:33)
[2024-07-31] MEDS: fentaNYL CITRATE 100 MCG/2 ML VL ONE (13:27)
[2024-07-31] MEDS: ANGIOMAX 250 MG VIAL IV ONE (13:27)
[2024-07-31] MEDS: MIDAZOLAM HCL 2MG/2ML 2ml VIAL (1mg/ml) ONE (13:28)
[2024-07-31] MEDS: HEPARIN SODIUM (PORCINE) 5000 UNITS/ML 1ML VIAL ONE (13:28)
[2024-07-31] MEDS: VERAPAMIL 2.5MG/ML INJ 2ML VIAL IV ONE (13:28)
[2024-07-31] MEDS: LIDOCAINE 2%HCL (LOCAL ANESTH.) INJ 20ML MDV ONE (13:28)
[2024-07-31] MEDS: SODIUM CHL 0.9% 0 ML ONE (13:28)
--- NOTE | 2024-07-31 14:30 | DVHOP2 ---
Operative Report -Cardiology Report Details Date: 07/31/24 Preop Diagnosis: Typical anginal chest pain. Postop Diagnosis: Coronary angiogram revealed sluggish flow to the LAD but no significant obstructive coronary artery disease was noted. Patient has been working be explained due to microvascular disease or other causes of endothelial dysfunction. He would definitely need risk factor modification and aggressive medical therapy. Surgeon: Delia Vogel MD Anesthesiologist: Conscious sedation using25 mcg of fentanyl as well as a mg IV midazolam. It was given under direct supervision of the primary developer support engineer in the presence of the attending nurses. Patient was monitored for total of35 minutes without obvious complication. Anesthesia: Local Consent: The patient was informed of the risks and benefits of the procedure. These include but are not limited to complications of anesthesia, postoperative infection, incomplete relief of symptoms, recurrence of symptoms, damage to blood vessels, nerves and tendons, deep venous thrombosis, pulmonary embolism and possible need for repeat surgery in the future. Indications for Surgery: This is a pleasant 63-year-old man who presented to the emergency room with a chief complaint of chest pain for two weeks. Describes his chest pain as progressive, substernal, radiating to his anterior neck area, pressure-like, exacerbated by activity, and associated with dyspnea on exertion. 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 He underwent a 12 lead electrocardiogram revealing a sinus rhythm ST segment depression to inferior leads and multiple premature atrial contractions. Serial troponin levels are negative. Family history includes father from a massive myocardial infarction in his 80s y.o. Only reports a medical history of dyslipidemia and occasional alcohol use. Of note, the patient has not seen a PCP with in the past in years. Name of Procedure Performed 1. Left heart catheterization with left ventricular end-diastolic pressure measurement. 2. Selective right and left coronary angiography utilizing right transradial approach. 3. Conscious sedation using25 mcg of fentanyl as well as a mg of midazolam. Procedure Details Procedure Details: Procedure note and vascular access: After informed consent was obtained, risks, benefits, complications, and alternatives were discussed in details with the p atient who agrees to have the procedure done. At the beginning of the procedure, the right wrist in the right groin area were prepped and draped in the regular sterile fashion. Patient mcg of fentanyl as well as a mg of midazolam for conscious sedation. Then he received total of2 cc of 1% xylocaine locally to the right wrist area before a six [place] sheath was placed using modified Seldinger technique without difficulty. A tiger five [place] catheter as well as a J-tip wire were used. Patient received total of 2.5 mg of verapamil as well as 100 mcg of nitroglycerin intra-arterial to prevent vasospasm. Findings were as follows: 1. Left heart catheterization with left ventricular end-diastolic pressure measurement: With the help of a tiger five [place] catheter as well as a J-tip wire we were able to cross the aortic valve measured left ventricular end-diastolic pressure which was normal at 8 mm of mercury. There was no gradient across the aortic valve on the pullback. 2. Selective right and left coronary angiography utilizing right transradial approach: 1. The right coronary artery comes off the right coronary cusp it is a large dominant system it gives rise to medium to large posterior descending artery as well as small posterolateral branch. There was no significant atherosclerotic plaquing with sluggish flow to the right coronary artery. 2. The left main comes off the left coronary cusp, it is free of any significant atherosclerotic plaquing or stenosis. It bifurcates into a large left anterior descending artery and medium-sized left circumflex vessel. 3. The left anterior descending artery is large vessels with sluggish flow it gives rise to two large diagonal branches. There is mild irregularity of the proximal part at 30%. No significant discrete stenosis was noted. 4. The left circumflex vessel is medium-sized vessel it gives rise to two obtuse marginal branches has mild irregularity with sluggish flow but no discrete stenosis noted. Impression and plan: 1. No significant atherosclerotic plaquing was noted apart from mild disease of the LAD with sluggish flow involving three-vessel. 2. Patient's symptoms could be explained by microvascular diseases versus other risk factors. 3. Patient need to undergo primary prevention protocol with the aggressive pressure control and statin control avoiding other risk factors such as smoking. Condition Good Dominance Dominance: Right Disposition DELIA VOGEL MD Jul 31, 2024 14:30
--- NOTE | 2024-07-31 17:13 | DVHPN2 ---
Consult Progress Note Date Seen: Jul 31, 2024 Subjective Review of Systems: CVS:Normal, RESPIRATORY:Normal, NEURO:Normal Objective vital signs Vital Sign Date Time Temp Pulse Resp B/P (MAP) Pulse Ox O2 Delivery O2 Flow Rate FiO2 07/31/24 15:06 57 16 126/69 (88) 97 07/31/24 13:28 97.6 97.6 07/30/24 20:00 Room Air* 0 21 Total Intake and Output 07/30/24 07/30/24 07/31/24 15:00 23:00 07:00 Intake Total 840 ml 1790 ml 300 ml Balance 840 ml 1790 ml 300 ml medications Current Medications Medications Dose Ordered Sig/Marcelino Route Start Time Stop Time Status Last Admin Dose Admin Atorvastatin Calcium 40 mg HS PO 07/29/24 23:30 07/30/24 21:06 40 MG Metoprolol Tartrate 12.5 mg Q12HR PO 07/29/24 23:30 07/31/24 10:58 12.5 MG Lisinopril 5 mg DAILY PO 07/30/24 10:00 07/31/24 10:57 5 MG Morphine Sulfate 2 mg Q30MP PRN IV 07/29/24 18:45 Acetaminophen 650 mg Q6HP PRN PO 07/29/24 18:45 Docusate Sodium 100 mg DAILY PO 07/30/24 10:00 07/31/24 10:56 100 MG Nitroglycerin 0.4 mg Q5MINP PRN SL 07/29/24 18:45 Ondansetron HCl 4 mg Q4HP PRN IV 07/29/24 18:45 Nitroglycerin 0.4 mg Q5MINP PRN SL 07/29/24 18:45 Morphine Sulfate 2 mg Q30M PRN IV 07/29/24 18:45 Hydralazine HCl 10 mg Q6HP PRN IV 07/30/24 15:45 Examination: LUNGS:Normal, CVS:Normal, NEURO:Normal laboratory and microbiology Laboratory Tests 07/31/24 04:50 Test 07/31/24 04:50 Range/Units Serum Glucose 103 74-106 mg/dL Problem List/Assessment/Plan Problem List/Assessment/Plan Chest pain, coronary artery disease ruled out Coronary slow-flow phenomenon Pre-diabetes, newly diagnosed Dyslipidemia Plan/Recommendation (Dr. Negrete) The patient presented with chest pain associated with EKG changes, pertinent family history for cardiovascular disease, and risk factors for which he underwent a cardiac catheterization and coronary angiogram revealing no significant atherosclerotic plaquing noted apart from mild disease of the LAD with a sluggish flow involving three-vessels. Transthoracic echocardiogram revealed EF 55%. Recommendations include lipid lowering agent and initiation of low-dose calcium-yared given coronary slow-flow phenomenon. Counseled on diet and exercise. Follow-up with PCP. There is no further cardiac workup indicated at this time. Kindly call in the need of further follow-up. Thank you for allowing us to participate in this patient's care. This medical document was created using an electronic medical record system with voice recognition software and computerized dictation system. Although this document has been carefully reviewed, there might still be some phonetic and typographical errors. Occasional wrong-word or ``sound-alike substitutions may have occurred due to the inherent limitations of voice recognition software. These areas are purely typographical due to imperfections of the software programs and do not reflect any compromise in the patient's medical care. Please read the chart carefully and recognize, using context, where these substitutions have occurred. Plan discussed with: Patient, Other Date of Service: Jul 31, 2024 Billing Provider: KAVITA NEGRETE MD Cardiology Common Codes: [id number] INP/OBS CARE(Mod) [employer] SALES REPRESENTATIVE Jul 31, 2024 17:13
[2024-07-31] MEDS: dilTIAZem HCL 60 MG TAB PO SCH (21:40)
[2024-08-01 01:00] VITALS: BP 102/53; PULSE 62; RESP 18; TEMP 97.4; O2SAT 98
[2024-08-01 05:00] VITALS: BP 113/50; PULSE 57; RESP 18; TEMP 97.5; O2SAT 99
[2024-08-01 06:55] LABS: Alanine Aminotransferase 29 U/L (7-40); Alkaline Phosphatase 65 U/L (46-116); Anion Gap 5 (5-15); BUN/Creatinine Ratio 16.1 (10.0-20.0); Blood Urea Nitrogen 14 mg/dL (9-23); Carbon Dioxide 28 mmol/L (20-31); Chloride 104 mmol/L (98-107); Glucose 93 mg/dL (74-106); Potassium 4.2 mmol/L (3.5-5.1); Sodium 137 mmol/L (136-145)
[2024-08-01 06:57] LABS: Albumin 4.5 g/dL (3.2-4.8); Aspartate Aminotransferase 17 U/L (13-40); Bilirubin, Total 1.3 mg/dL (0.2-1.0); Total Protein 7.1 g/dL (5.7-8.2)
[2024-08-01 08:00] VITALS: PULSE 64; PULSE 78; RESP 18; O2SAT 100
[2024-08-01 08:46] VITALS: BP 120/67; PULSE 78; RESP 18; TEMP 98; O2SAT 100
[2024-08-01] MEDS ORDERED: ATOR-507 PO (11:18)
[2024-08-01] MEDS ORDERED: DILT60TA2 PO (11:18)
--- NOTE | 2024-08-01 11:21 | DVHPN2 ---
Reviewed: Care Plan, H&P, Labs, Medications, Previous Orders, Radiology Changes from previous H/P or p: No Changes Eyes: No Pain, No Vision change, No Conjunctivae inflammation, No Eyelid inflammation, No Other, No Redness ENT: No Ear pain, No Ear discharge, No Nose pain, No Nose discharge, No Nose congestion, No Mouth pain, No Mouth swelling, No Throat pain, No Throat swelling, No Other Cardiovascular: Chest Pain, Palpitations; No Orthopnea, No Paroxysmal Noc. Dyspnea, No Edema, No Lt Headedness, No Other Respiratory: No Cough, No Dry; Shortness of breath, SOB with excertion; No Wheezing, No Hemoptysis, No Pleuritic Pain, No Sputum, No Other Gastrointestinal: No Nausea, No Vomiting, No Abdominal Pain, No Diarrhea, No Constipation, No Melena, No Hematochezia, No Other Genitourinary: No Dysuria, No Frequency, No Incontinence, No Hematuria, No Retention, No Other Musculoskeletal: No other, No neck pain, No shoulder pain, No arm pain, No back pain, No hand pain, No leg pain, No foot pain Skin: No Rash, No Lesions, No Jaundice, No Bruising, No Other Objective Vitals Vital Signs Date Time Temp Pulse Resp B/P (MAP) Pulse Ox O2 Delivery O2 Flow Rate FiO2 08/01/24 10:14 55 106/57 08/01/24 08:46 98.0 18 100 98.0 07/31/24 20:00 Room Air* 0 21 Intake/Output Intake and Output 08/01/24 07:00 Intake Total 0 ml Output Total 0 ml Balance 0 ml Intake Oral 0 ml Output Urine Total 0 ml # Voids 3 Medications Current Medications Medications Dose Ordered Sig/Marcelino Route Start Time Stop Time Status Last Admin Dose Admin Atorvastatin Calcium 40 mg HS PO 07/29/24 23:30 07/31/24 21:40 40 MG Morphine Sulfate 2 mg Q30MP PRN IV 07/29/24 18:45 Acetaminophen 650 mg Q6HP PRN PO 07/29/24 18:45 Docusate Sodium 100 mg DAILY PO 07/30/24 10:00 08/01/24 10:13 100 MG Nitroglycerin 0.4 mg Q5MINP PRN SL 07/29/24 18:45 Ondansetron HCl 4 mg Q4HP PRN IV 07/29/24 18:45 Nitroglycerin 0.4 mg Q5MINP PRN SL 07/29/24 18:45 Morphine Sulfate 2 mg Q30M PRN IV 07/29/24 18:45 Hydralazine HCl 10 mg Q6HP PRN IV 07/30/24 15:45 Diltiazem HCl 30 mg BID PO 07/31/24 22:00 08/01/24 10:14 30 MG Laboratory Results Laboratory Tests 07/31/24 04:50 08/01/24 05:47 Chemistry Test 08/01/24 05:47 Albumin 4.5 g/dL (3.2-4.8) Calcium Level 10.0 mg/dL (8.7-10.4) Total Protein 7.1 g/dL (5.7-8.2) LFT Test 08/01/24 05:47 Alanine Aminotransferase (ALT) 29 U/L (7-40) Alkaline Phosphatase 65 U/L (46-116) Aspartate Amino Transferase (AST) 17 U/L (13-40) Total Bilirubin 1.3 mg/dL (0.2-1.0) H Urinalysis Test 07/31/24 04:30 Urine Color Light-yellow (Yellow) Urine Clarity Clear (Clear) Urine pH 5.5 (5.0-9.0) Urine Specific [place] 1.018 (1.001-1.035) Urine Protein Negative (Negative) Urine Ketones Negative (Negative) Urine Blood Negative /uL (Negative) Urine Nitrite Negative (Negative) Urine Bilirubin Negative (Negative) Urine Urobilinogen Normal mg/dL (Negative) Urine Leukocyte Esterase Negative /uL (Negative) Urine RBC <1 /hpf (0 - 3) Urine WBC <1 /hpf (0 - 3) Urine Squamous Epithelial Cells None seen /hpf (<5) Urine Bacteria None seen /hpf (None Seen) Urine Glucose Normal mg/dL (Normal) Labs and/or images reviewed: Labs reviewed by me, Image(s) reviewed by me Assessment/Plan Assessment/Plan Chest Pain and shortness of breaths and palpitations x3 weeks, troponin negative x3 , aspirin Plavix Lipitor lisinopril metoprolol, left heart catheterization by Dr. Mars shows normal coronaries advised Cardizem and Lipitor Echo 55 % ejection fraction Flu test negative COVID test negative D-dimer negative Urine drug screen negative Hypercholesterolemia with cholesterol of 228: Lipitor 40 mg p.o. daily Discharged Without contrast negative Chronic Current alcohol abuse counseled Denies Smoking or illicit drug use Plan discussed with: Patient Date of Service: Aug 01, 2024 Billing Provider: BERT ALAN MD Common Visit Codes: [id number] INP/OBS CARE(HIGH) BERT ALAN MD Aug 01, 2024 11:21
--- NOTE | 2024-08-01 11:27 | DVHDS2 ---
Discharge Summary Date of Admission Jul 29, 2024 at 17:34 Date of Discharge: Aug 01, 2024 Admitting Diagnosis Chest pain Wounds: Left heart catheterization Labs/Diagnostic Data: Laboratory Results Test 08/01/24 05:47 07/31/24 04:50 07/31/24 04:30 07/30/24 18:30 Sodium Level 137 mmol/L (136-145) Potassium Level 4.2 mmol/L (3.5-5.1) Chloride Level 104 mmol/L (98-107) Carbon Dioxide Level 28 mmol/L (20-31) Anion Gap 5 (5-15) Blood Urea Nitrogen 14 mg/dL (9-23) Creatinine 0.87 mg/dL (0.700-1.30) Glomerular Filtration Rate Calc 97 mL/min (>90) BUN/Creatinine Ratio 16.1 (10.0-20.0) Serum Glucose 93 mg/dL (74-106) Calcium Level 10.0 mg/dL (8.7-10.4) Total Bilirubin 1.3 mg/dL (0.2-1.0) Aspartate Amino Transferase (AST) 17 U/L (13-40) Alanine Aminotransferase (ALT) 29 U/L (7-40) Alkaline Phosphatase 65 U/L (46-116) Total Protein 7.1 g/dL (5.7-8.2) Albumin 4.5 g/dL (3.2-4.8) White Blood Count 6.6 10^3/uL (4.4-10.8) Red Blood Count 4.80 10^6/uL (4.5-5.90) Hemoglobin 14.2 g/dL (13.5-17.5) Hematocrit 42.6 % (41.0-53.0) Mean Corpuscular Volume 88.7 fL (80.0-100.0) Mean Corpuscular Hemoglobin 29.6 pg (28.0-32.0) Mean Corpuscular Hemoglobin Concent 33.4 g/dL (32.0-36.0) Red Cell Distribution Width 12.7 % (11.8-14.3) Platelet Count 257 10^3/uL (140-450) Mean Platelet Volume 8.7 fL (6.9-10.8) Neutrophils (%) (Auto) 56.5 % (37.0-80.0) Lymphocytes (%) (Auto) 32.4 % (10.0-50.0) Monocytes (%) (Auto) 8.6 % (0.0-12.0) Eosinophils (%) (Auto) 1.7 % (0.0-7.0) Basophils (%) (Auto) 0.8 % (0.0-2.0) Neutrophils # (Auto) 3.7 10 ^3/uL (1.6-8.6) Lymphocytes # (Auto) 2.2 10 ^3/uL (0.4-5.4) Monocytes # (Auto) 0.6 10 ^3/uL (0-1.3) Eosinophils # (Auto) 0.1 10 ^3/uL (0-0.8) Basophils # (Auto) 0.1 10 ^3/uL (0-0.2) Nucleated Red Blood Cells 0.0 % Prothrombin Time 11.2 sec (9.3-11.8) Prothrombin Time INR 1.06 (0.9-1.15) Activated Partial Thromboplast Time 26.8 SEC (24.5-34.5) Urine Color Light-yellow (Yellow) Urine Clarity Clear (Clear) Urine pH 5.5 (5.0-9.0) Urine Specific [place] 1.018 (1.001-1.035) Urine Protein Negative (Negative) Urine Ketones Negative (Negative) Urine Blood Negative /uL (Negative) Urine Nitrite Negative (Negative) Urine Bilirubin Negative (Negative) Urine Urobilinogen Normal mg/dL (Negative) Urine Leukocyte Esterase Negative /uL (Negative) Urine RBC <1 /hpf (0 - 3) Urine WBC <1 /hpf (0 - 3) Urine Squamous Epithelial Cells None seen /hpf (<5) Urine Bacteria None seen /hpf (None Seen) Urine Glucose Normal mg/dL (Normal) Urine Opiates Screen Neg (NEGATIVE) Urine Fentanyl Screen Neg (NEGATIVE) Urine Barbiturates Screen Neg (NEGATIVE) Urine Phencyclidine Screen Neg (NEGATIVE) Urine Amphetamines Screen Neg (NEGATIVE) Urine Benzodiazepines Screen Neg (NEGATIVE) Urine Cocaine Screen Neg (NEGATIVE) Urine Cannabinoids Screen Neg (NEGATIVE) Plasma/Serum Blood Alcohol < 3.0 mg/dL (<10) Test 07/30/24 15:09 07/30/24 14:38 07/30/24 05:36 07/29/24 19:20 Influenza Type A Antigen Negative (Negative) Influenza Type B Antigen Negative (Negative) SARS-CoV-2 Antigen (Rapid) Negative (NEGATIVE) D-Dimer, Quantitative 0.22 mg/L FEU (0.0-0.49) Hemoglobin A1c 5.9 % A1C (<5.7) Magnesium Level 2.0 mg/dL (1.6-2.6) Triglycerides Level 227 mg/dL (< 150) Cholesterol Level 228 mg/dL (< 200) LDL Cholesterol 158 mg/dL (< 100) HDL Cholesterol 50 mg/dL (40-59) Thyroid Stimulating Hormone (TSH) 1.56 uIU/mL (0.55-4.78) Troponin I High Sensitivity 8 ng/L (</=54) Test 07/29/24 13:34 B-Type Natriuretic Peptide 30.46 pg/mL (0-100) Other Laboratory Tests 08/01/24 05:47 07/31/24 04:50 Brief Hx & Hospital Course: 53-year-old male with no previous medical history came in for chest pain troponin negative x3 treated per ACS protocol with aspirin Plavix Lipitor lisinopril metoprolol left heart catheterization by Dr. Cid showed normal coronaries cholesterol was high 228 started on Lipitor echocardiogram 55 percent ejection fraction urine drug screen negative CT chest without contrast negative D-dimer negative COVID negative flu test negative cleared for discharge by Cardiology discharged home on Cardizem and Lipitor he will follow up with his primary Dr Consults/Reason for consult Cardiology Dr.Al Hanley Operations or Procedures Left heart catheterization Condition at Discharge: Fair Final Diagnosis/Problems List Chest Pain and shortness of breaths and palpitations x3 weeks, troponin negative x3 , aspirin Plavix Lipitor lisinopril metoprolol, left heart catheterization by Dr. Mars shows normal coronaries advised Cardizem and Lipitor Echo 55 % ejection fraction Flu test negative COVID test negative D-dimer negative Urine drug screen negative Hypercholesterolemia with cholesterol of 228: Lipitor 40 mg p.o. daily Discharged Without contrast negative Chronic Current alcohol abuse counseled Denies Smoking or illicit drug use Discharge Disposition: Home Discharge Instruct/Medications Diet: Cardiac 2g Na,low cholest Activity: No Restrictions, As Tolerated Follow Up/Referral: Follow up with the primary Dr in one week Use medications as prescribed Medications: Lipitor Cardizem Transmitted to [facility] 39 (Time taken For discharge summary 39 minutes) Discharge Statement: "Patient was advised to return to the ER or call 911 if any headaches, dizziness, shortness of breath, chest pain, abdominal pain, bleeding, fevers, or worsening of medical condition. Patient was counseled about treatment plan, medications, possible side effects, patientverbalized understanding. All questions were answered to the best of my ability. This discharge took greater then 30 minutes in planning, reviewing documentation, counseling the patient, and discussing with other team members." ASSESSMENT ASSESSMENT Hospital Course Improved Assessment Chest Pain and shortness of breaths and palpitations x3 weeks, troponin negative x3 , aspirin Plavix Lipitor lisinopril metoprolol, left heart catheterization by Dr. Mars shows normal coronaries advised Cardizem and Lipitor Echo 55 % ejection fraction Flu test negative COVID test negative D-dimer negative Urine drug screen negative Hypercholesterolemia with cholesterol of 228: Lipitor 40 mg p.o. daily Discharged Without contrast negative Chronic Current alcohol abuse counseled Denies Smoking or illicit drug use Date of Service: Aug 01, 2024 Billing Provider: BERT ALAN MD Common Visit Codes: [id number] INP/OBS CARE(HIGH) BERT ALAN MD Aug 01, 2024 11:27
[2024-08-01 13:00] VITALS: BP 121/70; PULSE 54; RESP 14; TEMP 97.8; O2SAT 98
[2024-08-01 13:11] VITALS: BP 121/70; PULSE 54; RESP 14; TEMP 97.8; O2SAT 98
== END 2024-08-01 14:32 | disposition home or self-care (01) | DRG 287 ==
LOC: ER 12:44 → TELE 17:34 → TELE-WESTW 19:06
PROVIDERS: ADMIT Hospitalist; ATTEND Family Medicine
PROC: 4A023N7 Measurement of Cardiac Sampling and Pressure, Left Heart, Percutaneous Approach (ICD-10-PCS; principal; 2024-07-31)
PROC: B211YZZ Fluoroscopy of Multiple Coronary Arteries using Other Contrast (ICD-10-PCS; 2024-07-31)
DX: I20.89 Other forms of angina pectoris (principal); I48.91 Unspecified atrial fibrillation; F10.10 Alcohol abuse, uncomplicated; Z20.822 Contact with and (suspected) exposure to COVID-19; I49.1 Atrial premature depolarization; E78.00 Pure hypercholesterolemia, unspecified; Z79.899 Other long term (current) drug therapy; Z83.3 Family history of diabetes mellitus; Z82.49 Family history of ischemic heart disease and other diseases of the circulatory system; Z80.0 Family history of malignant neoplasm of digestive organs; Y90.9 Presence of alcohol in blood, level not specified
CPT/HCPCS: 36415; 71046; 71250; 80048; 80053; 80061; 80307; 80320; 81001; 83036; 83735; 83880; 84443; 84484; 85025; 85379; 85610; 85730; 86850; 86900; 86901; 87426; 87804; 93005; 93306; 99152; G0378; J2250; Q9967